=== PATIENT | female | born 1985 | race Two or more races ===

== ENCOUNTER 2019-01-20 08:00 | Inpatient (IN) | payer OTHER ==
[2019-01-27 15:41] VITALS: BMI 23.0
[2019-01-27] MEDS ORDERED: AMPICILLIN SODIUM 2 GM VIAL ONE (15:52)
[2019-01-27] MEDS: ELECTROLYTE-148 SOLN 1,000 ML IV SCH (15:55)
[2019-01-27] MEDS ORDERED: AMPICILLIN - 2 GM in SODIUM CHLORIDE 100 ML IVPB ONE ×2 (16:00→16:20)
--- NOTE | 2019-01-27 16:26 | HP ---
Past Medical History - Admission Chief Complaint: 40 weeks gestation / Elective induction History of Present Illness: 33 yo @ 40 weeks gestation, EDC 01/26/19, admitted for induction of labor. Upon admission, she was 4cm dilated with intact membrane. History Source: Patient Limitations to Obtaining History: No Limitations - Past Medical History ...: 3 ...Para: 1 ...Term: 1 ...: 0 ...Spon : 0 ...Induced : 0 ...Multiple Gestation: 0 ...EDC by Sono: 01/26/19 - Past Surgical History Past Surgical History: Yes: None Hx Myomectomy: No Hx Transabdominal Cerclage: No - Smoking History Smoking history: Never smoked Have you smoked in the past 12 months: No - Alcohol/Substance Use Hx Alcohol Use: No - Social History Usual Living Arrangement: Yes: With Spouse History of Recent Travel: No Home Medications - Allergies Allergies/Adverse Reactions: Allergies Allergy/AdvReac Type Severity Reaction Status Date / Time No Known Allergies Allergy Verified 01/27/19 15:42 - Home Medications Home Medications: Ambulatory Orders Ferrous Sulfate [Feosol] 325 mg PO TID 08/25/13 Vitamins (Sjr) - 1 tab PO DAILY 08/25/13 Review of Systems - Review of Systems Constitutional: reports: No Symptoms Eyes: reports: No Symptoms HENT: reports: No Symptoms Neck: reports: No Symptoms Cardiovascular: reports: No Symptoms Respiratory: reports: No Symptoms Gastrointestinal: reports: No Symptoms Genitourinary: reports: No Symptoms Breasts: reports: No Symptoms Reported Musculoskeletal: reports: No Symptoms Integumentary: reports: No Symptoms Neurological: reports: No Symptoms Endocrine: reports: No Symptoms Hematology/Lymphatic: reports: No Symptoms Psychiatric: reports: No Symptoms Pain Intensity: 3 Physical Exam - Maternity Vital Signs: Vital Signs Temperature 98.3 F 01/27/19 15:00 Pulse Rate 65 01/27/19 15:00 Respiratory Rate 20 01/27/19 15:00 Blood Pressure 130/83 01/27/19 15:00 O2 Sat by Pulse Oximetry (%) Constitutional: No: No Distress Eyes: Yes: Conjunctiva Clear HENT: Yes: Atraumatic Neck: Yes: Supple Cardiovascular: Yes: Regular Rate and Rhythm Lungs: Clear to auscultation Breast(s): Yes: WNL - Abdominal Exam/OB Number of Fetuses: Single Presentation: Vertex Contractions: Yes Regularity: Irregular - Vaginal Exam/OB Vaginal Bleediing: No Dilatation (cm): 4 Effacement (%): 70 Amniotic Membrane Status: Intact Presentation: Vertex/Position Station: -2 - Physical Exam Musculoskeletal: Yes: WNL Extremities: Yes: WNL Integumentary: Yes: WNL ...Motor Strength: WNL Psychiatric: Yes: Alert, Oriented Problem List - Problems (1) 40 weeks gestation of Problems reviewed: Yes Code(s): Z3A.40 - 40 WEEKS GESTATION OF Assessment/Plan 40 weeks gestation Admit to L&D Pitocin Analgesia as needed Anticipate
[2019-01-27] MEDS ORDERED: DEXTROSE 5%-LACTATED RINGERS 1,000 ML IV SCH (16:30)
[2019-01-27 16:34] LABS: BASO % 0.2 % (0-2.0); EOS % 0.2 % (0-4.5); HEMATOCRIT 37.8 % (32.4-45.2); HEMOGLOBIN 13.2 GM/dL (10.7-15.3); LYMPH % 13.9 % (8-40); MCH 33.7 pg (25.7-33.7); MCHC 34.9 g/dl (32.0-36.0); MEAN CELL VOLUME 96.7 fl (80-96); MEAN PLT VOLUME 8.8 fl (7.5-11.1); MONO % 8.2 % (3.8-10.2); NEUT % 77.5 % (42.8-82.8); PLATELET COUNT 222 K/MM3 (134-434); RBC 3.91 M/mm3 (3.60-5.2); RDW 13.3 % (11.6-15.6); WHITE BLOOD COUNT 12.8 K/mm3 (4.0-10.0)
[2019-01-27 16:53] LABS: INR 0.9 (0.83-1.09); PROTHROMBIN TIME (PATIENT) 10.6 SEC (9.7-13.0)
[2019-01-27 16:56] LABS: ACTIVATED PTT 27.8 SECONDS (25.2-36.5)
[2019-01-27 17:00] LABS: BLOOD UREA NITROGEN 8.7 mg/dL (7-18); CALCIUM 9.3 mg/dL (8.5-10.1); CREATININE 0.6 mg/dL (0.55-1.3); POTASSIUM 3.9 mmol/L (3.5-5.1)
[2019-01-27] MEDS: OXYTOCIN 30 UNITS in 0.9% NS 30 UNIT/500 ML INFUS.BAG IVPB SCH (18:00)
[2019-01-27] MEDS ORDERED: OXYTOCIN 30 UNITS in 0.9% NS 30 UNIT/500 ML INFUS.BAG IVPB ONE (18:10)
[2019-01-27] MEDS ORDERED: PROMETHAZINE HCL 25 MG/1 ML VIAL IVPUSH PRN (19:48)
[2019-01-27] MEDS ORDERED: BUTORPHANOL TARTRATE 1 MG/ML VIAL IVPUSH PRN (19:48)
[2019-01-27] MEDS ORDERED: BUTORPHANOL TARTRATE 1 MG/ML VIAL ONE ×2 (19:57)
[2019-01-27] MEDS ORDERED: SODIUM CHLORIDE 100 ML IVPB ONE (19:58)
[2019-01-27] MEDS ORDERED: AMPICILLIN SODIUM 1 GM VIAL ONE (19:58)
[2019-01-27] MEDS ORDERED: PROMETHAZINE HCL 25 MG/1 ML VIAL ONE (19:58)
[2019-01-27] MEDS: AMPICILLIN - 1 GM in SODIUM CHLORIDE 100 ML IVPB SCH (20:15)
[2019-01-27] MEDS ORDERED: OXYTOCIN 20 UNITS in 0.9% NS 20 UNIT/1,000 ML INFUS.BAG IV ONE (21:18)
[2019-01-27] MEDS ORDERED: LIDOCAINE HCL 1% PRESERVATIVE FREE - 30ML VIAL ONE (21:18)
[2019-01-27] MEDS ORDERED: FENTANYL/BUPIVACAINE/NS/PF - PCEA - 50 ML DISP.SYRIN EP ONE (21:32)
[2019-01-27] MEDS ORDERED: LIDO 2%/EPI 1:200000 PRESRVFRE (20 ML SDVIAL) ONE (21:33)
[2019-01-27] MEDS: FENTANYL/BUPIVACAINE/NS/PF - PCEA - 50 ML DISP.SYRIN EP SCH (21:55)
[2019-01-27] MEDS ORDERED: NALOXONE HCL 0.4 MG/ML VIAL IVPUSH PRN (22:00)
[2019-01-28] MEDS ORDERED: OXYTOCIN 20 UNITS in 0.9% NS 20 UNIT/1,000 ML INFUS.BAG IV ONE ×2 (01:45→04:25)
[2019-01-28] MEDS ORDERED: LIDOCAINE HCL 1% PRESERVATIVE FREE - 30ML VIAL ONE (01:45)
[2019-01-28] MEDS ORDERED: BENZOCAINE 28 GM HEMORRHOIDAL OINTMENT TP PRN (02:13)
[2019-01-28] MEDS ORDERED: METHYLERGONOVINE MALEATE 0.2 MG/1 ML AMP IM PRN (02:13)
[2019-01-28] MEDS ORDERED: WITCH HAZEL 50% (TUCKS) 40 PAD/JAR PAD TP PRN (02:13)
[2019-01-28] MEDS ORDERED: BISACODYL 10 MG SUPP.RECT RC PRN (02:13)
[2019-01-28] MEDS ORDERED: BENZOCAINE 20% 57 GM BOTTLE TP PRN (02:13)
[2019-01-28] MEDS: OXYTOCIN 20 UNITS in 0.9% NS 20 UNIT/1,000 ML INFUS.BAG IV SCH (02:15)
--- NOTE | 2019-01-28 02:18 | PN ---
Delivery - Delivery Vaginal Delivery: Spontaneous Type of Anesthesia: Epidural Episiotomy/Laceration: 1st degree EBL (cc): 300 Delivery, Single - [place] Feeding Plan Initial Plan: Elected not to breastfeed exclusively throughout hospitalization Remarks - Remarks Remarks: Normal spontaneous vaginal delivery of a live infant girl over intact perineum. Nose/ Oropharynx suctioned @ perineum. Cord clamped and cut Baby handed to nurse. Placenta expelled spontaneously intact. Mother in stable condition
[2019-01-28] MEDS: AMPICILLIN - 1 GM in SODIUM CHLORIDE 100 ML IVPB SCH ×2 (05:14→21:11)
[2019-01-28] MEDS: IBUPROFEN 600 MG TABLET (FP) PO PRN ×2 (06:14→22:18)
[2019-01-28] MEDS: ACETAMINOPHEN 325 MG TABLET (FP) PO PRN ×2 (06:15→22:17)
[2019-01-28] MEDS: PRENATAL VITAMINS W/ FOLIC ACID TABLET (FP) PO SCH (09:17)
[2019-01-28] MEDS: FERROUS SO4 325 MG TABLET (FP) PO SCH ×2 (09:17→22:17)
[2019-01-28 09:42] LABS: RPR NONREACTIVE (NONREACTIVE)
[2019-01-29] MEDS: AMPICILLIN - 1 GM in SODIUM CHLORIDE 100 ML IVPB SCH ×3 (00:02→15:04)
[2019-01-29 09:32] LABS: BASO % 0.3 % (0-2.0); EOS % 0.8 % (0-4.5); HEMATOCRIT 34.6 % (32.4-45.2); HEMOGLOBIN 11.8 GM/dL (10.7-15.3); MCH 33.4 pg (25.7-33.7); MCHC 34.2 g/dl (32.0-36.0); MEAN CELL VOLUME 97.9 fl (80-96); MEAN PLT VOLUME 8.5 fl (7.5-11.1); MONO % 6.8 % (3.8-10.2); NEUT % 80.1 % (42.8-82.8); PLATELET COUNT 189 K/MM3 (134-434); RBC 3.53 M/mm3 (3.60-5.2); WHITE BLOOD COUNT 11.8 K/mm3 (4.0-10.0)
[2019-01-29] MEDS ORDERED: DIPHTH,PERTUSS(ACELL),TET 0.5 ML DISP.SYRIN IM ONE (10:00)
[2019-01-29] MEDS ORDERED: FLU VACC QS2019-20(6MOS UP)/PF 60 MCG/0.5 ML SYRINGE IM ONE (10:00)
[2019-01-29] MEDS ORDERED: FLU VACCINE QUAD 60 MCG/0.5 ML (MDV 19-20) IM ONE (10:00)
[2019-01-29] MEDS: PRENATAL VITAMINS W/ FOLIC ACID TABLET (FP) PO SCH (11:02)
[2019-01-29] MEDS: FERROUS SO4 325 MG TABLET (FP) PO SCH ×2 (11:02→21:31)
--- NOTE | 2019-01-29 11:32 | PN ---
Post Progress Note Post Day: 1 Type of Delivery: Vital Signs: Vital Signs Temperature 97.3 F L 01/28/19 21:09 Pulse Rate 71 01/28/19 21:09 Respiratory Rate 20 01/28/19 21:09 Blood Pressure 106/71 01/28/19 21:09 O2 Sat by Pulse Oximetry (%) 99 01/28/19 02:30 Breast Exam: Yes: Soft Uterus: Yes: Fundus Firm Abdomen/GI: Yes: Abdomen soft, Tolerating PO Lochia: Yes: Rubra Lochia, amount: Moderate Extremities: Yes: Calves non-tender Perineum: Yes: Intact Activity: Ambulating - Labs Labs: CBC WBC 11.8 K/mm3 (4.0-10.0) H 01/29/19 09:05 RBC 3.53 M/mm3 (3.60-5.2) L 01/29/19 09:05 Hgb 11.8 GM/dL (10.7-15.3) 01/29/19 09:05 Hct 34.6 % (32.4-45.2) 01/29/19 09:05 MCV 97.9 fl (80-96) H 01/29/19 09:05 MCH 33.4 pg (25.7-33.7) 01/29/19 09:05 MCHC 34.2 g/dl (32.0-36.0) 01/29/19 09:05 RDW 13.0 % (11.6-15.6) 01/29/19 09:05 Plt Count 189 K/MM3 (134-434) 01/29/19 09:05 MPV 8.5 fl (7.5-11.1) 01/29/19 09:05 Absolute Neuts (auto) 9.4 K/mm3 (1.5-8.0) H 01/29/19 09:05 Neutrophils % 80.1 % (42.8-82.8) 01/29/19 09:05 Lymphocytes % 12.0 % (8-40) 01/29/19 09:05 Monocytes % 6.8 % (3.8-10.2) 01/29/19 09:05 Eosinophils % 0.8 % (0-4.5) D 01/29/19 09:05 Basophils % 0.3 % (0-2.0) 01/29/19 09:05 Nucleated RBC % 0 % (0-0) 01/29/19 09:05 Problem List - Problems (1) 40 weeks gestation of Problems reviewed: Yes Code(s): Z3A.40 - 40 WEEKS GESTATION OF Assessment/Plan Status post vaginal delivery Stable Continue routine care
[2019-01-29] MEDS: ELECTROLYTE-148 SOLN 1,000 ML IV SCH (15:00)
[2019-01-29] MEDS: OXYTOCIN 30 UNITS in 0.9% NS 30 UNIT/500 ML INFUS.BAG IVPB SCH (15:01)
[2019-01-29] MEDS: OXYTOCIN 20 UNITS in 0.9% NS 20 UNIT/1,000 ML INFUS.BAG IV SCH (15:02)
[2019-01-29] MEDS: FENTANYL/BUPIVACAINE/NS/PF - PCEA - 50 ML DISP.SYRIN EP SCH (15:02)
[2019-01-29] MEDS: IBUPROFEN 600 MG TABLET (FP) PO PRN ×2 (15:38→21:31)
[2019-01-29] MEDS: ACETAMINOPHEN 325 MG TABLET (FP) PO PRN (15:38)
[2019-01-29] MEDS ORDERED: SENNOSIDES/DOCUSATE COMBO (SENNA PLUS) TABLET (UD) PO PRN (22:00)
--- NOTE | 2019-01-30 04:59 | DS ---
Physical Exam-SOFT BOARDER Vital Signs: Vital Signs Temperature 97.6 F 01/29/19 20:08 Pulse Rate 80 01/29/19 20:08 Respiratory Rate 18 01/29/19 20:08 Blood Pressure 110/70 01/29/19 20:08 O2 Sat by Pulse Oximetry (%) 99 01/28/19 02:30 Constitutional: Yes: No Distress Eyes: Yes: Conjunctiva Clear HENT: Yes: Atraumatic Neck: Yes: Supple Cardiovascular: Yes: Regular Rate and Rhythm Respiratory: Yes: Regular Gastrointestinal: Yes: Normal Bowel Sounds Vaginal Exam: Yes: Normal Cervix: Yes: Normal Uterus: Yes: Normal ....Post : Yes: Uterus firm, Moderate lochia serosa Breast(s): Yes: WNL Musculoskeletal: Yes: WNL Extremities: Yes: WNL Neurological: Yes: Alert, Oriented ...Motor Strength: WNL Psychiatric: Yes: Alert, Oriented Labs: CBC, BMP 01/29/19 09:05 01/27/19 16:10 Delivery - Delivery Vaginal Delivery: Spontaneous Type of Anesthesia: Local, Epidural Episiotomy/Laceration: 1st degree EBL (cc): 300 Delivery, Single - Stages of Labor Date 1st Stage Initiatied: 01/27/19 Time 1st Stage Initiated: 14:00 Date 2nd Stage Initiated: 01/28/19 Time 2nd Stage Initiated: 01:40 Date of Delivery: 01/28/19 Time of Delivery: 02:00 Time Placenta Delivered: 02:05 - 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 - 1 Minute Total Score: 9 5 Minutes Total Score: 9 - [place] Feeding Plan Initial Plan: Elected not to breastfeed exclusively throughout hospitalization Discharge Summary Problems reviewed: Yes Reason For Visit: INDUCTION OF LABOR Current Active Problems 40 weeks gestation of (Acute) Procedures: Principal: Normal spontaneous vaginal delivery Hospital Course: Routine care Health Concerns: None Plan of Treatment: Analgesia F/U with MD in 6 weeks Goals: Resume normal activities in 6 weeks Condition: Good - Instructions Diet, Activity, Other Instructions: Regular diet No douching No sexual intecourse x 6 weeks F/U with MD in 6 weeks Disposition: HOME - Home Medications Comprehensive Discharge Medication List: Ambulatory Orders Ferrous Sulfate [Feosol] 325 mg PO TID 08/25/13 Vitamins (Sjr) - 1 tab PO DAILY 08/25/13
[2019-01-30 10:39] VITALS: BP 116/80; PULSE 66; TEMP 98.1
[2019-01-30] MEDS: PRENATAL VITAMINS W/ FOLIC ACID TABLET (FP) PO SCH (11:07)
[2019-01-30] MEDS: FERROUS SO4 325 MG TABLET (FP) PO SCH (11:07)
== END 2019-01-30 12:30 | disposition home or self-care (01) | DRG 560 ==
LOC: JLDR 01-27 14:45 → J3W 01-28 04:54
PROVIDERS: ADMIT Obstetrics & Gynecology; ATTEND Obstetrics & Gynecology
PROC: 10E0XZZ Delivery of Products of Conception, External Approach (ICD-10-PCS; principal; 2019-01-28)
PROC: 0HQ9XZZ Repair Perineum Skin, External Approach (ICD-10-PCS; 2019-01-28)
PROC: 0W8NXZZ Division of Female Perineum, External Approach (ICD-10-PCS; 2019-01-28)
DX: O70.0 First degree perineal laceration during delivery (principal); Z3A.40 40 weeks gestation of pregnancy; Z37.0 Single live birth
CPT/HCPCS: 36415; 59409; 80048; 85025; 85610; 85730; 86593; 86850; 86900; 86901; 87389; 90686; 90715

== ENCOUNTER 2021-01-01 20:53 | Emergency (ER) | payer OTHER ==
[2021-01-01 21:09] VITALS: BP 149/84; PULSE 82; TEMP 98; BMI 21.9
== END 2021-01-01 23:10 | disposition home or self-care (01) ==
LOC: JER 20:53
DX: R09.89 Other specified symptoms and signs involving the circulatory and respiratory systems (principal)
CPT/HCPCS: 70360-TC-FY; 99283-25

== ENCOUNTER 2021-01-06 09:50 | Emergency (ER) | payer OTHER ==
[2021-01-06 09:59] VITALS: BP 134/82; PULSE 72; TEMP 97; BMI 23.8
== END 2021-01-06 14:28 | disposition home or self-care (01) ==
LOC: JER 09:50
DX: R19.8 Other specified symptoms and signs involving the digestive system and abdomen (principal)
CPT/HCPCS: 70490-TC; 84703; 99284-25